=== PATIENT | male | born 1990 | race Two or more races ===

== ENCOUNTER 2017-04-21 22:27 | Inpatient (IN) | payer SELFPAY ==
[2017-04-21 22:48] LABS: ADD MAN DIFF? NO
[2017-04-21 22:50] LABS: BASO % 1 % (0-3); EOS # 0.9 x10^3/uL (0.0-0.7); EOS % 10 % (0-3); HEMATOCRIT 48.8 % (39.0-53.0); HEMOGLOBIN 15.9 g/dL (13.0-17.5); LYMPH # 1.8 x10^3/uL (1.0-4.8); LYMPH % 19 % (24-48); MEAN CORPUSCULAR HEMOGLOBIN 24 pg (25-35); MEAN CORPUSCULAR HGB CONC 33 g/dL (31-37); MEAN CORPUSCULAR VOLUME 73 fL (79-100); MONO # 0.6 x10^3/uL (0.0-1.1); MONO % 7 % (0-9); NEUT % 64 % (31-73); PLATELET COUNT 280 x10^3/uL (140-400); RED BLOOD COUNT 6.73 x10^6/uL (4.30-5.70); WHITE BLOOD COUNT 9.4 x10^3/uL (4.0-11.0)
[2017-04-21 23:00] LABS: ANION GAP 12 (6-14); BLOOD UREA NITROGEN 10 mg/dL (8-26); BUN/CREATININE RATIO 8 (6-20); CALCIUM 8.7 mg/dL (8.5-10.1); CARBON DIOXIDE 26 mmol/L (21-32); CHLORIDE 100 mmol/L (98-107); CREATININE 1.3 mg/dL (0.7-1.3); GFR 67.8; GLUCOSE 166 mg/dL (70-99); POTASSIUM 3.6 mmol/L (3.5-5.1); SODIUM 138 mmol/L (136-145)
[2017-04-21] MEDS: DIPHTH,PERTUSS(ACELL),TET TOX 0.5 ML DISP.SYRIN. VAX IM (23:01)
[2017-04-21 23:06] LABS: ALBUMIN 3.8 g/dL (3.4-5.0); ALBUMIN/GLOBULIN RATIO 0.9 (1.0-1.7); ALK PHOS 82 U/L (46-116); ALT (SGPT) 31 U/L (16-63); AST (SGOT) 29 U/L (15-37); CREATINE KINASE 630 U/L (39-308); TOTAL BILIRUBIN 0.4 mg/dL (0.2-1.0)
[2017-04-21 23:29] LABS: LACTIC ACID 2.3 mmol/L (0.4-2.0)
[2017-04-22] MEDS: IV NORMAL SALINE 1000ML BAG 1,000 ML IV (00:11)
[2017-04-22] MEDS ORDERED: ONDANSETRON PF 4 MG/2 ML VIAL. IV (00:15)
[2017-04-22 00:24] LABS: BACTERIA,URINE 0 /HPF (0-FEW); BILIRUBIN,URINE NEGATIVE (NEG); CLARITY,URINE CLOUDY; COLOR,URINE YELLOW; GLUCOSE,URINE NEGATIVE (NEG); NITRITE,URINE NEGATIVE (NEG); PROTEIN,URINE NEGATIVE (NEG-TRACE); RBC,URINE OCC /HPF (0-2); SQUAMOUS EPITHELIAL CELL,UR OCC /LPF; UROBILINOGEN,URINE 0.2 mg/dL (0.2 mg/dL); WBC,URINE 0 /HPF (0-4)
[2017-04-22 00:25] LABS: BARBITURATES NEG (NEG); BENZODIAZEPINES NEG (NEG); CANNABINOIDS NEG (NEG); COCAINE NEG (NEG); METHADONE NEG (NEG); OPIATES NEG (NEG); PHENCYCLIDINE NEG (NEG)
[2017-04-22 00:27] LABS: AMPHETAMINE/METHAMPHETAMINE POS (NEG); ETHANOL, URINE NEG (NEG)
[2017-04-22] MEDS: NEOMY/BACITR/POLYMYXIN OINT PACKET. TP (00:30)
[2017-04-22] MEDS: MORPHINE SULFATE 4 MG/ML DISP.SYRIN. IV ×3 (00:30→11:37)
[2017-04-22 11:34] LABS: LACTIC ACID 1.6 mmol/L (0.4-2.0)
[2017-04-23] MEDS: HYDROcodone/APAP 5/325MG 1 TAB TABLET PO ×2 (00:30→12:39)
[2017-04-23 05:06] LABS: BASO # 0.1 x10^3/uL (0.0-0.2); BASO % 1 % (0-3); EOS # 1.6 x10^3/uL (0.0-0.7); EOS % 14 % (0-3); HEMOGLOBIN 15.5 g/dL (13.0-17.5); LYMPH % 18 % (24-48); MEAN CORPUSCULAR HEMOGLOBIN 23 pg (25-35); MEAN CORPUSCULAR HGB CONC 31 g/dL (31-37); MEAN CORPUSCULAR VOLUME 74 fL (79-100); MONO # 0.9 x10^3/uL (0.0-1.1); MONO % 8 % (0-9); NEUT # 6.5 x10^3uL (1.8-7.7); NEUT % 60 % (31-73); PLATELET COUNT 270 x10^3/uL (140-400); RED BLOOD COUNT 6.75 x10^6/uL (4.30-5.70); RED CELL DISTRIBUTION WIDTH 15.6 % (11.5-14.5)
[2017-04-23 05:13] LABS: ANION GAP 6 (6-14); BLOOD UREA NITROGEN 16 mg/dL (8-26); CALCIUM 9.1 mg/dL (8.5-10.1); CARBON DIOXIDE 33 mmol/L (21-32); CHLORIDE 101 mmol/L (98-107); CREATININE 1.4 mg/dL (0.7-1.3); GFR 62.3; GLUCOSE 103 mg/dL (70-99); POTASSIUM 5.2 mmol/L (3.5-5.1); SODIUM 140 mmol/L (136-145)
[2017-04-23 05:15] LABS: ADD MAN DIFF? YES; HEMATOCRIT 48.9 % (39.0-53.0)
[2017-04-23 10:45] LABS: % ATYL 1 % (0-0); % BANDS 2 % (0-9); % EOS 14 % (0-5); % LYMPHS 12 % (24-48); % MONOS 9 % (0-10); % SEGS 62 % (35-66); ANISOCYTOSIS SLIGHT; PLT ESTIMATE ADEQUATE (ADEQUATE)
[2017-04-23] MEDS ORDERED: MORPHINE SULFATE 4 MG/ML DISP.SYRIN. IV (19:30)
[2017-04-23] MEDS ORDERED: ACETAMINOPHEN 500 MG TABLET PO (19:30)
[2017-04-23] MEDS ORDERED: ZOLPIDEM 5 MG TABLET. PO (19:30)
[2017-04-23] MEDS ORDERED: IBUPROFEN 400 MG TABLET. PO (19:30)
[2017-04-23] MEDS ORDERED: ONDANSETRON PF 4 MG/2 ML VIAL. IV (19:30)
[2017-04-23] MEDS ORDERED: ONDANSETRON ODT 4 MG TAB.RAPDIS. PO (19:30)
[2017-04-24 05:45] LABS: ANION GAP 8 (6-14); BLOOD UREA NITROGEN 14 mg/dL (8-26); CALCIUM 8.7 mg/dL (8.5-10.1); CARBON DIOXIDE 32 mmol/L (21-32); CHLORIDE 101 mmol/L (98-107); CREATININE 1.4 mg/dL (0.7-1.3); GFR 62.3; GLUCOSE 102 mg/dL (70-99); POTASSIUM 4.3 mmol/L (3.5-5.1); SODIUM 141 mmol/L (136-145)
== END 2017-04-24 14:00 | disposition home or self-care (01) | DRG 914 ==
LOC: 4 NORTH 23:00 → ER 22:27
DX: S81.842A Puncture wound with foreign body, left lower leg, initial encounter (principal); S81.802A Unspecified open wound, left lower leg, initial encounter; F15.10 Other stimulant abuse, uncomplicated; W34.00XA Accidental discharge from unspecified firearms or gun, initial encounter; Y93.89 Activity, other specified; Y92.89 Other specified places as the place of occurrence of the external cause; Y99.8 Other external cause status
CPT/HCPCS: 36415; 73590; 80048; 80053; 80307; 81001; 82550; 83605; 85007; 85025; 90471; 90715; 99285; 99285-25; J2270; J7030

== ENCOUNTER 2018-06-06 00:04 | Emergency (ER) | payer OTHER ==
[~2018-06-06] VITALS: Ht 172.7 cm; Wt 81.6 kg
[~2018-06-06 00:04] MED LIST: CEPH-264 PO
[2018-06-06 00:51] VITALS: BP 126/72
[2018-06-06] MEDS ORDERED: DEXAMETHASONE 4 MG TABLET PO ONE (02:00)
--- NOTE | 2018-06-06 02:22 | PHYS DOC ---
Past Medical History Past Medical History: No Pertinent History Past Surgical History: No Surgical History Additional Information: Nonsmoker Alcohol Use: Rarely Drug Use: None Adult General Chief Complaint Chief Complaint: Congestion HPI HPI 28 y/o presents with 2-3 day history of nasal congestion, headache, productive cough with yellow sputum, sore throat, and subjective fever/chills. Patient presents with his mother who has the same symptoms. Denies travel outside the [place]. Denies N/V/D or abdominal pain. Denies neck pain. Review of Systems Review of Systems Constitutional: Reports subjective fever and chills Eyes: Denies change in visual acuity, redness, or eye pain HENT: Reports nasal congestion and sore throat Respiratory: Reports productive cough; denies shortness of breath Cardiovascular: Denies chest pain or palpitations GI: Denies abdominal pain, nausea, vomiting, or diarrhea : Denies dysuria or hematuria Musculoskeletal: Denies back pain or joint pain Integument: Denies rash or skin lesions Neurologic: Reports headache; denies focal weakness or sensory changes Complete systems were reviewed and found to be within normal limits, except as documented in this note. Current Medications Current Medications Current Medications Medications (Trade) Dose Ordered Sig/Katiuska Start Time Stop Time Status Last Admin Dose Admin Dexamethasone (Decadron) 10 mg 1X ONCE 06/06/18 02:00 06/06/18 02:01 DC 06/06/18 02:07 10 MG Allergies Allergies Allergies Coded Allergies Type Severity Reaction Last Updated Verified No Known Drug Allergies 05/25/15 No Physical Exam Physical Exam Constitutional: Well developed, well nourished, no acute distress, non-toxic appearance HENT: Normocephalic, atraumatic, oropharynx moist, tonsillary erythema without e xudate, TMs dull but without erythema bilaterally, nose with congestion noted, no sinus tenderness Eyes: Conjunctiva normal, no discharge Neck: Normal range of motion, no tenderness, supple, no meningeal signs Cardiovascular: Heart rate normal and regular rhythm Lungs & Thorax: Bilateral breath sounds clear to auscultation, no respiratory distress Abdomen: Soft, no tenderness Skin: Warm, dry, no erythema, no rash Extremities: No tenderness, ROM intact, no edema Neurologic: Alert and oriented X 3, no focal deficits noted Psychologic: Affect normal, judgement normal, mood normal Current Patient Data Vital Signs Vital Signs Date Time Temp Pulse Resp B/P (MAP) Pulse Ox O2 Delivery O2 Flow Rate FiO2 06/06/18 00:51 98.1 65 18 126/72 (90) 97 Room Air 98.1 Lab Values Laboratory Tests Test 06/06/18 01:58 Group A Streptococcus Rapid Negative (NEGATIVE) Microbiology 06/06/18 Throat Culture - Final, Complete 06/06/18 - Final, Complete EKG EKG [] Radiology/Procedures Radiology/Procedures [] Course & Med Decision Making Course & Med Decision Making Pertinent Lab studies reviewed. (See chart for details) Patient presents with HPI and physical exam consistent for acute URI. Some pharyngeal erythema noted. Rapid strep negative. CX pending. Likely post nasal drip. Symptomatic treatment provided with oral steroid. Patient stable for discharge home with outpatient follow-up with PCP. Discussed findings and plan with patient and family, who acknowledge understanding and agreement. Dragon Disclaimer Dragon Disclaimer This electronic medical record was generated, in whole or in part, using a voice recognition dictation system. Departure Departure Impression: Primary Impression: Upper respiratory infection Disposition: 01 HOME, SELF-CARE Condition: STABLE Referrals: NO PCP (PCP) Patient Instructions: Upper Respiratory Infection, Adult, [id number] Additional Instructions: Use over the counter Tylenol and Ibuprofen for pain for discomfort. Use over the counter cold and cough preparations. Problem Qualifiers Primary Impression: Upper respiratory infection URI type: unspecified URI Qualified Codes: J06.9 - Acute upper respiratory infection, unspecified LIANE FAIRCHILD DO Jun 06, 2018 02:22
== END 2018-06-06 02:42 | disposition home or self-care (01) ==
LOC: ER 00:04
DX: J06.9 Acute upper respiratory infection, unspecified (principal)
CPT/HCPCS: 87070; 87880; 99284; J8540

== ENCOUNTER 2021-01-17 20:53 | Emergency (ER) | payer SELFPAY ==
[~2021-01-17] VITALS: Ht 175.3 cm; Wt 86.4 kg
--- NOTE | 2021-01-17 22:11 | RAD ---
Exam: Chest one view INDICATION: Cough TECHNIQUE: Frontal view of the chest Comparisons: None FINDINGS: The cardiomediastinal silhouette and pulmonary vessels are within normal limits. The lung and pleural spaces are clear. IMPRESSION: No acute cardiopulmonary process. Electronically signed by: Magaly Moura MD (01/17/2021 10:08 PM) [facility]UB[facility]
[2021-01-17] MEDS ORDERED: OXYMETAZOLINE 0.05% NASAL SPRAY 30ML BOTTLE. NS ONE (22:30)
[2021-01-17 22:48] LABS: INFLUENZA A PATIENT NEGATIVE (NEGATIVE); INFLUENZA B PATIENT NEGATIVE (NEGATIVE)
--- NOTE | 2021-01-17 23:34 | PHYS DOC ---
Past Medical History Past Medical History: No Pertinent History Past Surgical History: No Surgical History Smoking Status: Never Smoker Alcohol Use: None Drug Use: None General Adult EDM: Chief Complaint: COUGH HPI: HPI: Patient is a 30 year old male with no significant medical history who presents to the ED today complaining of cough and a headache that began today. Patient denies any fever, nasal congestion. Reports intermittent episodes of nosebleeds since last week. Denies any chest pain or shortness of breath. Patient is unvaccinated against Covid. Patient's family member interpreted for Aubreye Review of Systems: Review of Systems: Constitutional: Denies fever or chills. [] Eyes: Denies change in visual acuity. [] HENT: Reports nosebleeds. Denies nasal congestion or sore throat. [] Respiratory: Reports cough, denies shortness of breath. [] Cardiovascular: Denies chest pain or edema. [] GI: Denies abdominal pain, nausea, vomiting, bloody stools or diarrhea. [] : Denies dysuria. [] Musculoskeletal: Denies back pain or joint pain. [] Integument: Denies rash. [] Neurologic: Reports headache, denies focal weakness or sensory changes. [] ] Psychiatric: Denies depression or anxiety. [] Heart Score: C/O Chest Pain: N/A Risk Factors: Risk Factors: DM, Current or recent (<one month) smoker, HTN, HLP, family history of CAD, obesity. Risk Scores: Score 0 - 3: 2.5% MACE over next 6 weeks - Discharge Home Score 4 - 6: 20.3% MACE over next 6 weeks - Admit for Clinical Observation Score 7 - 10: 72.7% MACE over next 6 weeks - Early Invasive Strategies Current Medications: Current Medications Medications (Trade) Dose Ordered Sig/Katiuska Start Time Stop Time Status Last Admin Dose Admin Oxymetazoline HCl (Afrin) 2 spray 1X ONCE 01/17/21 22:30 01/17/21 22:31 DC 01/17/21 22:28 2 SPRAY Allergies: Allergies: Allergies Coded Allergies Type Severity Reaction Last Updated Verified No Known Drug Allergies 05/25/15 No Physical Exam: PE: Constitutional: Well developed, well nourished, no acute distress, non-toxic appearance. [] HENT: Normocephalic, atraumatic, bilateral external ears normal, oropharynx moist, no oral exudates, nose normal. No nosebleeding noted. Eyes: PERRLA, EOMI, conjunctiva normal, no discharge. [] Neck: Normal range of motion, no tenderness, supple, no stridor. [] Cardiovascular:Heart rate regular rhythm, no murmur [] Lungs & Thorax: Bilateral breath sounds clear to auscultation [] Abdomen: Bowel sounds normal, soft, no tenderness, no masses, no pulsatile masses. [] Skin: Warm, dry, no erythema, no rash. [] Back: No tenderness, no CVA tenderness. [] Extremities: No tenderness, no cyanosis, no clubbing, ROM intact, no edema. [] Neurologic: Alert and oriented X 3, normal motor function, normal sensory function, no focal deficits noted. [] Psychologic: Affect normal, judgement normal, mood normal. [] Current Patient Data: Labs: Laboratory Tests Test 01/17/21 22:25 Influenza Type A Antigen Negative (NEGATIVE) Influenza Type B Antigen Negative (NEGATIVE) SARS-CoV-2 Antigen (Rapid) Negative (NEGATIVE) Vital Signs: Vital Signs Date Time Temp Pulse Resp B/P (MAP) Pulse Ox O2 Delivery O2 Flow Rate FiO2 01/17/21 21:40 98.2 80 13 134/60 (84) 99 Room Air 98.2 EKG: EKG: [] Radiology/Procedures: Radiology/Procedures: []PROCEDURE: CHEST AP ONLY Exam: Chest one view INDICATION: Cough TECHNIQUE: Frontal view of the chest Comparisons: None FINDINGS: The cardiomediastinal silhouette and pulmonary vessels are within normal limits. The lung and pleural spaces are clear. IMPRESSION: No acute cardiopulmonary process. Electronically signed by: Magaly Espinoza MD (01/17/2021 10:08 PM) [facility] DICTATED and SIGNED BY: MAGALY ESPINOZA MD DATE: 01/17/21 [id number] 0 Course & Med Decision Making: Course & Med Decision Making Pertinent Labs and Imaging studies reviewed. (See chart for details) This a 30-year-old male patient with no significant medical history presenting today complaining of cough and headache that began today. Also complaining of intermittent episodes of nosebleed for the last couple days. Physical exam is benign. Patient is afebrile. Chest x-ray is negative for any acute findings, negative rapid Covid test. PCR Covid test pending. Supportive care measures recommended. Provided Afrin for nosebleeds. Recommended Neosporin to bilateral nasal cavities for 1week, recommended humidifier at home. Follow-up with PCP in 1 week Noreen Disclaimer: Noreen Disclaimer: This electronic medical record was generated, in whole or in part, using a voice recognition dictation system. Departure Departure Impression: Primary Impression: Person under investigation for COVID-19 Additional Impressions: Cough Epistaxis Disposition: HOME / SELF CARE / HOMELESS Condition: STABLE Referrals: NO PCP (PCP) follow up in one week Patient Instructions: Cough, Adult, [id number], Nosebleed Additional Instructions: You were evaluated in the emergency room. You were tested for COVID-19, your rapid Covid test is negative, your PCR Covid test is pending. Quarantine yourself until we call you with results. Your chest x-ray is negative for any acute findings. You can take Tylenol or Motrin for pain or fever. Please apply Neosporin to your nasal cavities twice a day for 1 week. Consider getting a humidifier for your bedroom. MADIE PAPPAS APRN Jan 17, 2021 23:34
[2021-01-17 23:43] VITALS: BP 118/55
== END 2021-01-17 23:57 | disposition home or self-care (01) ==
LOC: ER 20:53
DX: R05.9 Cough, unspecified (principal); Z20.822 Contact with and (suspected) exposure to COVID-19; R04.0 Epistaxis; R51.9 Headache, unspecified
CPT/HCPCS: 71045; 87426; 87804; 99284; U0003; U0005

== ENCOUNTER 2021-05-21 19:30 | Emergency (ER) | payer SELFPAY ==
[~2021-05-21] VITALS: Ht 162.6 cm; Wt 81.8 kg
[2021-05-21] MEDS ORDERED: IV NORMAL SALINE 1000ML BAG 1,000 ML IV ONE (20:15)
[2021-05-21] MEDS ORDERED: KETOROLAC 30 MG/ML VIAL. IVP ONE (20:15)
[2021-05-21] MEDS ORDERED: ACETAMINOPHEN 500 MG TABLET PO ONE (20:15)
[2021-05-21 20:50] LABS: BASO # 0.1 x10^3/uL (0.0-0.2); BASO % 1 % (0-3); EOS # 0.8 x10^3/uL (0.0-0.7); EOS % 7 % (0-3); HEMATOCRIT 45.9 % (39.0-53.0); HEMOGLOBIN 14.4 g/dL (13.0-17.5); LYMPH # 1.8 x10^3/uL (1.0-4.8); LYMPH % 17 % (24-48); MEAN CORPUSCULAR HEMOGLOBIN 22 pg (25-35); MEAN CORPUSCULAR HGB CONC 31 g/dL (31-37); MEAN CORPUSCULAR VOLUME 71 fL (79-100); MONO # 0.7 x10^3/uL (0.0-1.1); MONO % 6 % (0-9); NEUT # 7.1 x10^3/uL (1.8-7.7); NEUT % 68 % (31-73); PLATELET COUNT 266 x10^3/uL (140-400); RED BLOOD COUNT 6.47 x10^6/uL (4.30-5.70); RED CELL DISTRIBUTION WIDTH 15.1 % (11.5-14.5); WHITE BLOOD COUNT 10.5 x10^3/uL (4.0-11.0)
[2021-05-21 20:59] LABS: CALCIUM 8.7 mg/dL (8.5-10.1); CREATININE 1.2 mg/dL (0.7-1.3); GFR 71.6; POTASSIUM 3.6 mmol/L (3.5-5.1)
[2021-05-21 21:07] LABS: ALBUMIN 3.8 g/dL (3.4-5.0); ALBUMIN/GLOBULIN RATIO 1.1 (1.0-1.7); TOTAL BILIRUBIN 0.1 mg/dL (0.2-1.0); TOTAL PROTEIN 7.3 g/dL (6.4-8.2)
[2021-05-21 21:44] LABS: HYPOCHROMIA SLIGHT; MICROCYTOSIS MOD; PLT ESTIMATE ADEQUATE (ADEQUATE)
[2021-05-21 22:00] LABS: INFLUENZA A PATIENT NEGATIVE (NEGATIVE); INFLUENZA B PATIENT NEGATIVE (NEGATIVE)
[2021-05-21] MEDS ORDERED: IBUP-1007 PO (22:23)
[2021-05-21] MEDS ORDERED: ACET500T68 PO (22:23)
--- NOTE | 2021-05-21 22:23 | PHYS DOC ---
Past Medical History Past Medical History: No Pertinent History Past Surgical History: No Surgical History Smoking Status: Never Smoker Alcohol Use: None Drug Use: None Adult General Chief Complaint Chief Complaint: GENERALIZED BODY ACHES HPI HPI The patient is a 31-year-old [facility] male who is otherwise healthy. He presents for evaluation of body aches with onset yesterday. States he has achy body pain to his arms, legs, and torso. Denies any other focal or specific symptoms and specifically denies fevers, nausea or vomiting, headache, focal or lateralizing weakness, numbness or tingling, neck stiffness/pain/meningismus (patient ranges his neck fully in all dimensions without discomfort or distress), vision changes, upper respiratory congestion/rhinorrhea, cough, sore throat, shortness of breath or chest pain of any kind, focal abdominal pain of any kind, flank pain, midline back pain, dysuria, hematuria, polyuria or oliguria, groin pain, changes in bowel habits, pain or swelling to arms or legs. Patient is alert, pleasantly and appropriately interactive and in absolutely no acute distress with appropriate vital signs upon initial evaluation here in the emergency department. He is ambulatory to his ED bed with a narrow, steady, non-ataxic, nonantalgic gait. Review of Systems Review of Systems A 12 point review of systems was completed and was negative except where noted in HPI above. Current Medications Current Medications Current Medications Medications (Trade) Dose Ordered Sig/Katiuska Start Time Stop Time Status Last Admin Dose Admin Acetaminophen (Tylenol) 1,000 mg 1X ONCE 05/21/21 20:15 05/21/21 20:16 DC 05/21/21 20:46 1,000 MG Ketorolac Tromethamine (Toradol 30mg Vial) 30 mg 1X ONCE 05/21/21 20:15 05/21/21 20:16 DC 05/21/21 20:46 30 MG Sodium Chloride 1,000 ml @ 1,000 mls/hr 1X ONCE 05/21/21 20:15 05/21/21 21:14 DC 05/21/21 20:45 1,000 MLS/HR Allergies Allergies Allergies Coded Allergies Type Severity Reaction Last Updated Verified No Known Drug Allergies 05/21/21 No Physical Exam Physical Exam 31-year-old male appearing nontoxic and in no acute distress. Head is normocephalic and atraumatic. Neck is supple and nontender. There is no neck stiffness/rigidity/meningismus seen and patient ranges neck fully in all dimensions without discomfort or distress. Kernig's and Brudzinski's are negative. Oropharynx is moist. Lungs are clear to auscultation at all stations. There is a normal S1 and S2 without rubs or gallops and capillary r efill is appropriate, less than 2 seconds globally. Abdomen is soft, nontender and nondistended. Evaluation of the back reveals no erythema, warmth, swelling, step-offs or deformities. Skin is warm and dry without cyanosis, clubbing or edema. Psychiatrically, the patient demonstrates appropriate mood and affect and is alert. Neurologically, cranial nerves II through XII are intact and there are no lateralizing deficits seen. Speech is normal. Language is normal. Coordination is normal. There is no dysmetria [id number] or [id number] bilaterally. Strength is 5 out of 5 at all joints of bilateral upper and lower extremities. Sensation is intact light touch in bilateral upper and lower extremities. Patient ambulates with a narrow, steady, non-ataxic gait here in the emergency department and is alert and oriented x4. Current Patient Data Vital Signs Vital Signs Date Time Temp Pulse Resp B/P (MAP) Pulse Ox O2 Delivery O2 Flow Rate FiO2 05/21/21 20:00 98.1 86 20 132/84 (100) 96 Room Air 98.1 Lab Values Laboratory Tests Test 05/21/21 20:40 05/21/21 21:30 White Blood Count 10.5 x10^3/uL (4.0-11.0) Red Blood Count 6.47 x10^6/uL (4.30-5.70) H Hemoglobin 14.4 g/dL (13.0-17.5) Hematocrit 45.9 % (39.0-53.0) Mean Corpuscular Volume 71 fL (79-100) L Mean Corpuscular Hemoglobin 22 pg (25-35) L Mean Corpuscular Hemoglobin Concent 31 g/dL (31-37) Red Cell Distribution Width 15.1 % (11.5-14.5) H Platelet Count 266 x10^3/uL (140-400) Neutrophils (%) (Auto) 68 % (31-73) Lymphocytes (%) (Auto) 17 % (24-48) L Monocytes (%) (Auto) 6 % (0-9) Eosinophils (%) (Auto) 7 % (0-3) H Basophils (%) (Auto) 1 % (0-3) Neutrophils # (Auto) 7.1 x10^3/uL (1.8-7.7) Lymphocytes # (Auto) 1.8 x10^3/uL (1.0-4.8) Monocytes # (Auto) 0.7 x10^3/uL (0.0-1.1) Eosinophils # (Auto) 0.8 x10^3/uL (0.0-0.7) H Basophils # (Auto) 0.1 x10^3/uL (0.0-0.2) Platelet Estimate Adequate (ADEQUATE) Hypochromasia Slight Microcytosis Mod Sodium Level 138 mmol/L (136-145) Potassium Level 3.6 mmol/L (3.5-5.1) Chloride Level 105 mmol/L (98-107) Carbon Dioxide Level 26 mmol/L (21-32) Anion Gap 7 (6-14) Blood Urea Nitrogen 6 mg/dL (8-26) L Creatinine 1.2 mg/dL (0.7-1.3) Estimated GFR (Cockcroft-Gault) 71.6 BUN/Creatinine Ratio 5 (6-20) L Glucose Level 101 mg/dL (70-99) H Calcium Level 8.7 mg/dL (8.5-10.1) Total Bilirubin 0.1 mg/dL (0.2-1.0) L Aspartate Amino Transferase (AST) 23 U/L (15-37) Alanine Aminotransferase (ALT) 46 U/L (16-63) Alkaline Phosphatase 91 U/L (46-116) Total Protein 7.3 g/dL (6.4-8.2) Albumin 3.8 g/dL (3.4-5.0) Albumin/Globulin Ratio 1.1 (1.0-1.7) Influenza Type A Antigen Negative (NEGATIVE) Influenza Type B Antigen Negative (NEGATIVE) SARS-CoV-2 Antigen (Rapid) Negative (NEGATIVE) Laboratory Tests 05/21/21 20:40 Laboratory Tests 05/21/21 20:40 EKG EKG [] Radiology/Procedures Radiology/Procedures [] Course & Med Decision Making Course & Med Decision Making Well-appearing 31-year-old gentleman with normal vital signs, unremarkable physical examination and nonfocal neurologic examination presents for evaluation of generalized body aches since yesterday. Basic labs and swabs are unremarkable. Patient feels a great deal better after IV fluids and medication for symptoms as noted. No evidence of emergency medical condition has been identified. Patient is counseled to rest, hydrate and take ibuprofen and Tylenol as needed for symptoms. He understands that if he feels worse instead of better or develops other new symptoms of concern that he should return to the emergency department right away for reevaluation. All questions are answered. Dragon Disclaimer Dragon Disclaimer This electronic medical record was generated, in whole or in part, using a voice recognition dictation system. Departure Departure Impression: Primary Impression: Body aches Disposition: HOME / SELF CARE / HOMELESS Condition: IMPROVED Patient Instructions: Medical Screening Exam Additional Instructions: Follow-up very closely with your primary care doctor in the office in the next 2 to 4 days for a reevaluation of your symptoms and a discussion of next best steps in care. Drink plenty of fluids to stay hydrated and get plenty of rest. You may take ibuprofen and Tylenol every 6 hours each as needed for discomfort; recommend taking them on an alternating basis so that you have a medicine every 3 hours or so for your symptoms. Return to the emergency department right away for worsening symptoms of any kind or with any other new symptoms of concern. Scripts Acetaminophen (ACETAMINOPHEN) 500 Mg Tablet 1 TAB PO PRN Q6HRS PRN for pain or fever, #50 TAB 0 Refills Prov: TOÑO RIOJAS MD 05/21/21 Ibuprofen (IBUPROFEN) 600 Mg Tablet 600 MG PO PRN Q6HRS PRN for PAIN, #24 TAB take with food or milk Prov: TOÑO RIOJAS MD 05/21/21 TOÑO RIOJAS MD May 21, 2021 22:23
[2021-05-21 22:30] VITALS: BP 119/65
== END 2021-05-21 22:30 | disposition home or self-care (01) ==
LOC: ER 19:30
DX: M79.10 Myalgia, unspecified site (principal); Z20.822 Contact with and (suspected) exposure to COVID-19
CPT/HCPCS: 36415; 80053; 85025; 87426; 87428; 96361; 96374; 99283; J1885; J7030; 99284-25